=== PATIENT | female | born 1960 | race Caucasian/White ===

== ENCOUNTER 2017-02-24 18:51 | Emergency (ER) | payer OTHER ==
[2017-02-24 18:56] VITALS: BP 165/108; PULSE 84; TEMP 98.3; BMI 28.7
[2017-02-24] MEDS ORDERED: OXYCODONE/APAP 5/325MG COMBO TABLET PO ONE (19:30)
[2017-02-24] MEDS ORDERED: OXYCODONE/APAP 5/325MG COMBO TABLET ONE (19:33)
--- NOTE | 2017-02-24 19:35 | PDOC ---
"History of Present Illness - General Chief Complaint: Pain Stated Complaint: LOWER BACK AND LEG PAIN Time Seen by Provider: 02/24/17 19:14 History Source: Patient Exam Limitations: No Limitations - History of Present Illness Initial Comments: 02/24/17 19:35 My Chief complaint: Left lower back pain with radiation down History of present illness: Patient is a 57-year-old female with a history of asthma, hypertension, and hypothyroidism and chronic lower back pain with radiculopathy. Patient reports that she was supposed to go for a right sided L3 L5 radio frequency ablation however her insurance company denied the procedure due to her having it on 2016. Pt. goes to Dr. Nishant Chan for pain management. She denies any weakness of her left leg or any saddle anesthesia or any incontinency. Patient reports that today pain increased from a 5 to an 8 and a sharp in nature. Occurred: reports: other (worsening today) Severity: reports: severe (left sided radiating down left leg worse today ) Pain Location: reports: back (left sided radiates down left posterior leg) Method of Injury: No: unknown Modifying Factors: worse with: None Loss of Consciousness: no loss of consciousness Associated Symptoms (Fall): denies symptoms Past History - Past Medical History Allergies/Adverse Reactions: Allergies Allergy/AdvReac Type Severity Reaction Status Date / Time No Known Allergies Allergy Verified 02/24/17 18:56 Home Medications: Ambulatory Orders Albuterol Sulfate Inhaler - [Ventolin HFA Inhaler -] 1 - 2 inh PO Q4H 02/24/17 Metoprolol Succinate [Toprol XL -] 25 mg PO DAILY 02/24/17 Oxycodone HCl/Acetaminophen [Percocet 5-325 mg Tablet] 1 - 2 tab PO Q6H Oxycodone HCl/Acetaminophen [Percocet 5-325 mg Tablet] 1 - 2 tab PO Q6H PRN #20 tab MDD 6 02/24/17 Asthma: Yes Diabetes: No (BORDERLINE) HTN: Yes Thyroid Disease: Yes - Surgical History Cholecystectomy: Yes - Psycho/Social/Smoking Cessation Hx Suicidal Ideation: No Smoking History: Never smoked Hx Alcohol Use: No Drug/Substance Use Hx: No Substance Use Type: None Review of Systems - Review of Systems Able to Perform ROS?: Yes Constitutional: No: Symptoms Reported HEENTM: No: Symptoms Reported Respiratory: No: Symptoms reported Cardiac (ROS): No: Symptoms Reported ABD/GI: No: Symptoms Reported : No: Symptoms Reported Musculoskeletal: Yes: Back Pain (left lower back radiates down left leg posteriorly ). No: Joint Pain, Joint Swelling Integumentary: No: Symptoms Reported Neurological: No: Symptoms reported *Physical Exam - Vital Signs Last Vital Signs Temp Pulse Resp BP Pulse Ox 98.3 F 84 20 165/108 97 02/24/17 18:53 02/24/17 18:53 02/24/17 18:53 02/24/17 18:53 02/24/17 18:53 - Physical Exam General Appearance: Yes: Appropriately Dressed Respiratory/Chest: positive: Lungs Clear, Normal Breath Sounds. negative: Chest Tender, Respiratory Distress Cardiovascular: positive: Regular Rhythm, Regular Rate, S1, S2 Musculoskeletal: positive: Normal Inspection, Decreased Range of Motion (at waist with flexion ), Other (left paraspinal muscle tenderness). negative: CVA Tenderness, CVA Tenderness (R), CVA Tenderness (L), Muscle Spasm, Vertebral Tenderness Extremity: positive: Normal Capillary Refill, Normal Inspection, Normal Range of Motion Integumentary: positive: Normal Color Neurologic: positive: Alert, Normal Response, Motor Strength 5/5 (b/l legs), Respond to painful stimul (b/l legs). negative: Responsive, Numbness, Sensory Deficit Deep Tendon Reflexes: Knee (L): 4+, Knee (R): 4+ Medical Decision Making - Medical Decision Making 02/24/17 19:40 Patient is a 57-year-old female with a history of asthma, hypertension, and hypothyroidism and chronic lower back pain with radiculopathy. Patient reports that she was supposed to go for a right sided L3 L5 radio frequency ablation however her insurance company denied the procedure due to her having it on 2016. Pt. goes to Dr. Nishant Chan for pain management. She denies any weakness of her left leg or any saddle anesthesia or any incontinency. Patient reports that today pain increased from a 5 to an 8 and a sharp in nature. Pt. has taken percocet in the past for that has helped but has not had in a long time. Pt. just took her BP medication. Left Lumbar radiculopathy PLAN: percocet 5mg/325 mg than every 6 hrs prn severe pain # 12 02/24/17 19:42 Patient Search Multi-Patient Search Reports Drug Listing Designation My LEXY Numbers Data Detail Level: Printer-Friendly View Extended View Confidential Drug Utilization Report Search Terms: Mars Laurent, 1960 Search Date: 02/24/2017 07:29:15 PM The Drug Utilization Report below displays all of the controlled substance prescriptions, if any, that your patient has filled in the last twelve months. The information displayed on this report is compiled from pharmacy submissions to the Department, and accurately reflects the information as submitted by the pharmacies. This report was requested by: Lalita Messer | Reference #: [id number] *DC/Admit/Observation/Transfer Diagnosis at time of Disposition: Lumbar pain with radiation down left leg - Discharge Dispostion Disposition: HOME Condition at time of disposition: Stable - Prescriptions Prescriptions: Oxycodone HCl/Acetaminophen [Percocet 5-325 mg Tablet] 1 - 2 tab PO Q6H PRN #20 tab MDD 6 PRN Reason: Severe Pain - Referrals Referrals: Hi Everett MD [Primary Care Provider] - - Patient Instructions Additional Instructions: FOLLOW UP WITH YOUR PAIN MANAGEMENT DOCTOR RETURN TO EMERGENCY ROOM IF ANY NUMBNESS OF LEGS OR PRIVATE AREA PATIENT VOICED UNDERSTANDING AND ALL QUESTIONS WERE ANSWERED - Post Discharge Activity"
== END 2017-02-24 20:05 | disposition home or self-care (01) ==
LOC: JERFT 18:51
DX: M54.16 Radiculopathy, lumbar region (principal); I10 Essential (primary) hypertension; J45.909 Unspecified asthma, uncomplicated; E03.9 Hypothyroidism, unspecified
CPT/HCPCS: 99281-25

== ENCOUNTER 2017-04-06 15:35 | Emergency (ER) | payer OTHER ==
[2017-04-06 15:39] VITALS: BP 155/90; PULSE 92; TEMP 99.1; BMI 29.2
[2017-04-06] MEDS ORDERED: KETOROLAC TROMETHAMINE 60 MG/2 ML VIAL ONE (16:44)
--- NOTE | 2017-04-06 16:51 | PDOC ---
History of Present Illness - General Chief Complaint: Pain, Acute Stated Complaint: LT ARM/SHOULDER PAIN Time Seen by Provider: 04/06/17 16:22 History Source: Patient Exam Limitations: No Limitations - History of Present Illness Initial Comments: 04/06/17 16:46 Patient came to the emergency department for evaluation of chronic left shoulder pain. suffers from multiple chronic issues including low back pain, upper back pain, fibromyalgia, and psychiatric diagnoses. feelyani may have strained her left arm and was concerned about her shoulder bones. Patient denies numbness or tingling to hand, had no specific injury although feels may have been lifting some heavy bags earlier last week. suffers from multiple inflammatory problems and is requesting Percocet for pain relief 04/06/17 16:52 Occurred: reports: last week Severity: reports: mild, moderate Pain Location: reports: upper extremity Past History - Travel Traveled outside of the country in the last 30 days: No Close contact w/someone who was outside of country & ill: No - Past Medical History Allergies/Adverse Reactions: Allergies Allergy/AdvReac Type Severity Reaction Status Date / Time No Known Allergies Allergy Verified 04/06/17 15:39 Home Medications: Ambulatory Orders Albuterol Sulfate Inhaler - [Ventolin HFA Inhaler -] 1 - 2 inh PO Q4H 02/24/17 Metoprolol Succinate [Toprol XL -] 25 mg PO DAILY 02/24/17 Oxycodone HCl/Acetaminophen [Percocet 5-325 mg Tablet] 1 - 2 tab PO Q6H Oxycodone HCl/Acetaminophen [Percocet 5-325 mg Tablet] 1 - 2 tab PO Q6H PRN #20 tab MDD 6 02/24/17 Asthma: Yes Diabetes: No (BORDERLINE) HTN: Yes Thyroid Disease: Yes - Surgical History Cholecystectomy: Yes - Psycho/Social/Smoking Cessation Hx Suicidal Ideation: No Smoking History: Never smoked Information on smoking cessation initiated: No Hx Alcohol Use: No Drug/Substance Use Hx: No Substance Use Type: None Review of Systems - Review of Systems Able to Perform ROS?: Yes Is the patient limited Slovenian proficient: Yes Constitutional: Yes: Symptoms Reported, See HPI HEENTM: Yes: See HPI. No: Symptoms Reported Respiratory: No: Symptoms reported Musculoskeletal: Yes: Symptoms Reported, See HPI, Joint Pain, Muscle Pain Integumentary: No: Symptoms Reported Psychiatric: Yes: Anxiety All Other Systems: Reviewed and Negative *Physical Exam - Vital Signs Last Vital Signs Temp Pulse Resp BP Pulse Ox 99.1 F 92 H 19 155/90 98 04/06/17 15:37 04/06/17 15:37 04/06/17 15:37 04/06/17 15:37 04/06/17 15:37 - Physical Exam General Appearance: Yes: Nourished, Appropriately Dressed HEENT: positive: SOPHIE, Normal ENT Inspection Gastrointestinal/Abdominal: positive: Soft. negative: Tender Musculoskeletal: positive: Normal Inspection, Decreased Range of Motion (with pain on elevation against resistance ) Extremity: positive: Normal Capillary Refill, Swelling (mild tenderness and feet swelling noted at the capsule of left shoulder, but reproduce tenderness with abduction and forward flexion at tricep ligament) Integumentary: positive: Normal Color, Dry. negative: Rash, Swelling Neurologic: positive: press and blow machine tender II-XII NML intact, Fully Oriented, Alert, Normal Mood/ Affect, Normal Response, Motor Strength 5/5 Progress Note - Progress Note Progress Note: Left deltoid ligamentous strain, given 2 Percocet tablets for today pain relief , but encouraged to continue NSAIDs as narcotic pain indication probably not appropriate or indicated for this type of issue. Encouraged to follow-up with her PMD for further evaluation and treatment, and including reestablishment in pain management program. *DC/Admit/Observation/Transfer Diagnosis at time of Disposition: Left shoulder strain Qualifiers: Encounter type: initial encounter Qualified Code(s): S46.912A - Strain of unspecified muscle, fascia and tendon at shoulder and upper arm level, left arm , initial encounter - Discharge Dispostion Disposition: HOME Condition at time of disposition: Stable Admit: No - Patient Instructions Printed Discharge Instructions: How to Use a Sling, DI for Muscle Strain Additional Instructions: Rest, ice to area on and off for 15 minutes 4-6 times a day Avoid heavy lifting or exercise until pain and swelling is resolved or until further directed Keep area highly elevated to reduce swelling Use splints/Hood wrap as directed Followup with orthopedist in one to 2 days if not improving, if significantly improved may wait one week for followup with orthopedist May use ibuprofen 2-200 mg tablets every 6 hours as needed for pain Discussed with PMD about reinstating pain management and further prescriptions as needed
[2017-04-06] MEDS ORDERED: KETOROLAC TROMETHAMINE 60 MG/2 ML VIAL IM ONE (17:00)
== END 2017-04-06 17:04 | disposition home or self-care (01) ==
LOC: JERFT 15:35
PROC: 3E0233Z Introduction of Anti-inflammatory into Muscle, Percutaneous Approach (ICD-10-PCS; principal; 2017-04-06)
DX: S46.812A Strain of other muscles, fascia and tendons at shoulder and upper arm level, left arm, initial encounter (principal); G89.29 Other chronic pain; I10 Essential (primary) hypertension; E11.9 Type 2 diabetes mellitus without complications; E07.9 Disorder of thyroid, unspecified; J45.909 Unspecified asthma, uncomplicated; X50.0XXA Overexertion from strenuous movement or load, initial encounter; Y93.89 Activity, other specified; Y92.89 Other specified places as the place of occurrence of the external cause; Y99.8 Other external cause status
CPT/HCPCS: 99281-25

== ENCOUNTER 2018-06-14 17:33 | Emergency (ER) | payer OTHER ==
--- NOTE | 2018-06-14 17:52 | PDOC ---
Rapid Medical Evaluation Time Seen by Provider: 06/14/18 17:50 Medical Evaluation: Allergies Allergy/AdvReac Type Severity Reaction Status Date / Time No Known Allergies Allergy Verified 04/06/17 15:39 I have performed a brief in-person evaluation of this patient. The patient presents with a chief complaint of: dysuria and urgency x 2 days Pertinent physical exam findings: no CVA TTP b/l. no abd pain I have ordered the following: UA/culture The patient will proceed to the ED for further evaluation. Discharge Disposition - Diagnosis Dysuria - Referrals - Patient Instructions - Post Discharge Activity
[2018-06-14 17:53] VITALS: BP 130/77; PULSE 84; TEMP 98.5; BMI 28.0
[2018-06-14 19:00] LABS: URINE APPEARANCE CLOUDY; URINE BILIRUBIN NEGATIVE (<2.0 mg/dL); URINE COLOR DKYELLOW; URINE GLUCOSE (UA) NEGATIVE (NEGATIVE); URINE KETONE NEGATIVE (NEGATIVE); URINE LEUK ESTERASE 2+ (NEGATIVE); URINE NITRITE NEGATIVE (NEGATIVE); URINE PROTEIN NEGATIVE (NEGATIVE)
[2018-06-14 19:10] LABS: EPI CELLS RARE /HPF (FEW); URINE BACTERIA RARE /hpf (NONE SEEN); URINE MUCUS MANY
[2018-06-14] MEDS ORDERED: CEPHALEXIN MONOHYDRATE 500 MG CAPSULE (UD) PO ONE (19:19)
[2018-06-14] MEDS ORDERED: PHENAZOPYRIDINE HCL 100 MG TABLET (FP) PO ONE (19:19)
--- NOTE | 2018-06-14 19:21 | PDOC ---
History of Present Illness - General Chief Complaint: Urinary Problem Stated Complaint: UTI Time Seen by Provider: 06/14/18 17:50 History Source: Patient Exam Limitations: No Limitations - History of Present Illness Initial Comments: 06/14/18 19:22 Patient is a 58-year-old female who presents to the emergency department today for 3 days of dysuria, frequency and hesitancy. Patient states that she has lower abdominal pressure and discomfort. She states that her urine also has a foul smell to it. Denies fevers, chills, nausea, vomiting, diarrhea, back pain and weakness. Past History - Travel Traveled outside of the country in the last 30 days: No Close contact w/someone who was outside of country & ill: No - Past Medical History Allergies/Adverse Reactions: Allergies Allergy/AdvReac Type Severity Reaction Status Date / Time No Known Allergies Allergy Verified 06/14/18 17:50 Home Medications: Ambulatory Orders Albuterol Sulfate Inhaler - [Ventolin HFA Inhaler -] 1 - 2 inh PO Q4H 02/24/17 Metoprolol Succinate [Toprol XL -] 25 mg PO DAILY 02/24/17 Oxycodone HCl/Acetaminophen [Percocet 5-325 mg Tablet] 1 - 2 tab PO Q6H Oxycodone HCl/Acetaminophen [Percocet 5-325 mg Tablet] 1 - 2 tab PO Q6H PRN #20 tab MDD 6 02/24/17 Cephalexin Monohydrate [Keflex -] 500 mg PO BID #14 capsule 06/14/18 Phenazopyridine HCl [Pyridium -] 100 mg PO TID #9 tablet 06/14/18 Asthma: Yes COPD: No Diabetes: No (BORDERLINE) HTN: Yes Thyroid Disease: Yes - Surgical History Cholecystectomy: Yes - Immunization History Immunization Up to Date: Yes - Suicide/Smoking/Psychosocial Hx Smoking History: Never smoked Information on smoking cessation initiated: No Hx Alcohol Use: No Drug/Substance Use Hx: No Substance Use Type: None Review of Systems - Review of Systems Able to Perform ROS?: Yes Comments:: 06/14/18 19:18 CONSTITUTIONAL: Absent: fever, chills, diaphoresis, generalized weakness, malaise, loss of appetite HEENT: Absent: rhinorrhea, nasal congestion, throat pain, throat swelling, difficulty swallowing, mouth swelling, ear pain, eye pain, visual Changes CARDIOVASCULAR: Absent: chest pain, loss of consciousness, palpitations, irregular heart rate, peripheral edema RESPIRATORY: Absent: cough, shortness of breath, dyspnea with exertion, orthopnea, wheezing, stridor, hemoptysis GASTROINTESTINAL: Absent: abdominal pain, abdominal distension, nausea, vomiting, diarrhea, constipation, melena, hematochezia GENITOURINARY: Present: dysuria, frequency, urgency, hesitancy Absent: hematuria, flank pain, genital pain MUSCULOSKELETAL: Absent: myalgia, arthralgia, joint swelling SKIN: Absent: rash, itching, pallor HEMATOLOGIC/IMMUNOLOGIC: Absent: easy bleeding, easy bruising, lymphadenopathy, frequent infections ENDOCRINE: Absent: unexplained weight gain, unexplained weight loss, heat intolerance, cold intolerance NEUROLOGIC: Absent: headache, focal weakness or paresthesias, dizziness, unsteady gait, seizure, mental status changes, bladder or bowel incontinence PSYCHIATRIC: Absent: anxiety, depression, suicidal or homicidal ideation, hallucinations. Is the patient limited Cameroonian proficient: No *Physical Exam - Vital Signs Last Vital Signs Temp Pulse Resp BP Pulse Ox 98.5 F 84 16 130/77 97 06/14/18 17:51 06/14/18 17:51 06/14/18 17:51 06/14/18 17:51 06/14/18 17:51 - Physical Exam Comments: 06/14/18 19:19 GENERAL: Well developed, well nourished. Awake and alert. No acute distress. NECK: Supple. Full ROM. No JVD. Carotid pulses 2+ and symmetric, without bruits. No thyromegaly. No lymphadenopathy. ABDOMINAL: Soft. Non-tender. Non-distended. No rebound or guarding. No organomegaly. Normoactive bowel sounds. SKIN: Warm and dry. Normal capillary refill. No rashes. No jaundice. NEUROLOGICAL: Alert, awake, appropriate. Cranial nerves 2-12 intact. No deficits to light touch and temperature in face, upper extremities and lower extremities. No motor deficits in the in face, upper extremities and lower extremities. Normoreflexic in the upper and lower extremities. Normal speech. Toes are down- going bilaterally. Gait is normal without ataxia. PSYCHIATRIC: Cooperative. Good eye contact. Appropriate mood and affect. ED Treatment Course - ADDITIONAL ORDERS Additional order review: Laboratory Results 06/14/18 17:52 Urine Color Dkyellow Urine Appearance Cloudy Urine pH 5.0 Ur Specific Soso 1.026 Urine Protein Negative Urine Glucose (UA) Negative Urine Ketones Negative Urine Blood Negative Urine Nitrite Negative Urine Bilirubin Negative Urine Urobilinogen 2.0 H Ur Leukocyte Esterase 2+ H Urine WBC (Auto) 41 Urine RBC (Auto) 2 Ur Epithelial Cells Rare Urine Bacteria Rare Urine Mucus Many Medical Decision Making - Medical Decision Making 06/14/18 19:23 Patient is a 58-year-old female who presents to the emergency department today for dysuria, frequency, hesitancy. On exam patient with no abdominal pain or CVA tenderness. Urine ordered from [facility] shows 2+ leukocytes with 40+ white blood cells. We'll treat as a urinary tract infection at this time. Keflex and Pyridium ordered. Discharge home I discussed the physical exam findings, ancillary test results and final diagnoses with the patient. I answered all of the patient's questions. The patient was satisfied with the care received and felt comfortable with the discharge plan and treatment plan. The Patient agrees to follow up with the primary care physician/specialist within 24-72 hours. Return precautions were given. *DC/Admit/Observation/Transfer Diagnosis at time of Disposition: UTI (urinary tract infection) Qualifiers: Urinary tract infection type: acute cystitis Hematuria presence: without hematuria Qualified Code(s): N30.00 - Acute cystitis without hematuria - Discharge Dispostion Disposition: HOME Condition at time of disposition: Stable Decision to Admit order: No - Prescriptions Prescriptions: Cephalexin Monohydrate [Keflex -] 500 mg PO BID #14 capsule Phenazopyridine HCl [Pyridium -] 100 mg PO TID #9 tablet - Referrals Referrals: Sabrina Guerrero MD [Staff Physician] - - Patient Instructions Printed Discharge Instructions: DI for Urinary Tract Infection (UTI) Additional Instructions: You have a urinary tract infection. This caused by bacteria. Please drink plenty of fluids. Take your antibiotics as prescribed. Finish the entire dose even if you feel better. You may take Tylenol or Motrin as needed for pain. Follow the dosing instruction on the bottle You may take the pyridium 100mg TID with food to help with the pain when you pee. Please follow up with your primary care doctor this week. Return to the emergency department if you have fevers, chills, nausea, vomiting , back pain, or have any changes in your symptoms. - Post Discharge Activity Forms/Work/School Notes: Back to Work
[2018-06-14] MEDS ORDERED: PHENAZOPYRIDINE HCL 100 MG TABLET (FP) ONE (19:25)
[2018-06-14] MEDS ORDERED: CEPHALEXIN MONOHYDRATE 500 MG CAPSULE (UD) ONE (19:25)
== END 2018-06-14 19:30 | disposition home or self-care (01) ==
LOC: JERFT 17:33
DX: N30.00 Acute cystitis without hematuria (principal); I10 Essential (primary) hypertension; J45.909 Unspecified asthma, uncomplicated; E07.89 Other specified disorders of thyroid
CPT/HCPCS: 81003; 81015; 87086; 87186; 99281-25

== ENCOUNTER 2019-04-05 22:29 | Emergency (ER) | payer OTHER ==
[2019-04-05 22:44] VITALS: TEMP 98.5; BMI 69.8
--- NOTE | 2019-04-05 23:31 | PDOC ---
*Physical Exam - Vital Signs Last Vital Signs Temp Pulse Resp BP Pulse Ox 98.5 F 91 H 19 113/68 98 04/05/19 22:40 04/05/19 22:40 04/05/19 22:40 04/05/19 22:40 04/05/19 22:40 Medical Decision Making - Medical Decision Making 04/05/19 23:30 Patient seen by the advanced practice provider under my direct supervision. Ancillary testing reviewed as necessary. I agree with plan as outlined by the advanced practice provider. *DC/Admit/Observation/Transfer Diagnosis at time of Disposition: UTI (urinary tract infection) Qualifiers: Urinary tract infection type: acute cystitis Hematuria presence: without hematuria Qualified Code(s): N30.00 - Acute cystitis without hematuria - Discharge Dispostion Disposition: HOME Condition at time of disposition: Stable - Prescriptions Prescriptions: Cefdinir [Omnicef -] 300 mg PO BID #14 capsule - Referrals Referrals: Charles Valencia MD [Staff Physician] - - Patient Instructions Printed Discharge Instructions: DI for Urinary Tract Infection (UTI) Additional Instructions: You have a urinary tract infection. This caused by bacteria. Please drink plenty of fluids. Take your antibiotics as prescribed. Finish the entire dose even if you feel better. You may take Tylenol or Motrin as needed for pain Please follow up with your primary care doctor this week. Return to the emergency department if you have fevers, chills, nausea, vomiting , back pain, or have any changes in your symptoms. - Post Discharge Activity Forms/Work/School Notes: Back to Work
[2019-04-05 23:44] LABS: EPI CELLS 0.9 /HPF (0-5/HPF); HYALINE CASTS 23 /lpf (0-8); URINE APPEARANCE CLEAR; URINE BACTERIA 193.7 /hpf (NEGATIVE); URINE BILIRUBIN NEGATIVE (NEGATIVE); URINE COLOR YELLOW; URINE GLUCOSE (UA) NEGATIVE (NEGATIVE); URINE KETONE NEGATIVE (NEGATIVE); URINE LEUK ESTERASE 1+ (NEGATIVE); URINE NITRITE POSITIVE (NEGATIVE); URINE PROTEIN NEGATIVE (NEGATIVE); URINE RBC 2 /hpf (0-4); URINE WBC 60 /hpf (0-5)
[2019-04-06] MEDS ORDERED: CEPHALEXIN MONOHYDRATE 500 MG CAPSULE (UD) PO ONE ×2 (00:43→00:48)
--- NOTE | 2019-04-06 00:47 | PDOC ---
History of Present Illness - General Chief Complaint: Urinary Problem Stated Complaint: URINARY PROBLEM Time Seen by Provider: 04/05/19 23:28 History Source: Patient Exam Limitations: No Limitations Past History - Travel Traveled outside of the country in the last 30 days: No Close contact w/someone who was outside of country & ill: No - Past Medical History Allergies/Adverse Reactions: Allergies Allergy/AdvReac Type Severity Reaction Status Date / Time No Known Allergies Allergy Verified 06/14/18 17:50 Home Medications: Ambulatory Orders Cephalexin Monohydrate [Keflex -] 500 mg PO BID #14 capsule 06/14/18 Phenazopyridine HCl [Pyridium -] 100 mg PO TID #9 tablet 06/14/18 Cefdinir [Omnicef -] 300 mg PO BID #10 capsule 06/18/18 Cefixime [Suprax -] 400 mg PO DAILY #7 capsule 06/18/18 Cefixime [Suprax -] 400 mg PO DAILY #7 capsule 06/18/18 Cefdinir [Omnicef -] 300 mg PO BID #14 capsule 04/06/19 Asthma: Yes COPD: No Diabetes: No (BORDERLINE) HTN: Yes Thyroid Disease: Yes - Surgical History Cholecystectomy: Yes - Immunization History Immunization Up to Date: Yes - Suicide/Smoking/Psychosocial Hx Smoking History: Never smoked Hx Alcohol Use: No Drug/Substance Use Hx: No Substance Use Type: None Review of Systems - Review of Systems Able to Perform ROS?: Yes Comments:: 04/06/19 00:42 CONSTITUTIONAL: Absent: fever, chills, diaphoresis, generalized weakness, malaise, loss of appetite HEENT: Absent: rhinorrhea, nasal congestion, throat pain, throat swelling, difficulty swallowing, mouth swelling, ear pain, eye pain, visual Changes CARDIOVASCULAR: Absent: chest pain, loss of consciousness, palpitations, irregular heart rate, peripheral edema RESPIRATORY: Absent: cough, shortness of breath, dyspnea with exertion, orthopnea, wheezing, stridor, hemoptysis GASTROINTESTINAL: Absent: abdominal pain, abdominal distension, nausea, vomiting, diarrhea, constipation, melena, hematochezia GENITOURINARY: Present: dysuria, frequency Absent: urgency, hesitancy, hematuria, flank pain, genital pain MUSCULOSKELETAL: Absent: myalgia, arthralgia, joint swelling SKIN: Absent: rash, itching, pallor HEMATOLOGIC/IMMUNOLOGIC: Absent: easy bleeding, easy bruising, lymphadenopathy, frequent infections ENDOCRINE: Absent: unexplained weight gain, unexplained weight loss, heat intolerance, cold intolerance NEUROLOGIC: Absent: headache, focal weakness or paresthesias, dizziness, unsteady gait, seizure, mental status changes, bladder or bowel incontinence PSYCHIATRIC: Absent: anxiety, depression, suicidal or homicidal ideation, hallucinations. Is the patient limited Slovak proficient: No *Physical Exam - Vital Signs Last Vital Signs Temp Pulse Resp BP Pulse Ox 98.5 F 91 H 19 113/68 98 04/05/19 22:40 04/05/19 22:40 04/05/19 22:40 04/05/19 22:40 04/05/19 22:40 - Physical Exam Comments: 04/06/19 00:43 GENERAL: Well developed, well nourished. Awake and alert. No acute distress. HEENT: Normocephalic, atraumatic. PERRLA, EOMI. No conjunctival pallor. Sclera are non- icteric. Moist mucous membranes. Oropharynx is clear. ABDOMINAL: suprapubic discomfort Soft. Non-tender. Non-distended. No rebound or guarding. No organomegaly. Normoactive bowel sounds. MUSCULOSKELETAL Normal range of motion at all joints. No bony deformities or tenderness. No CVA tenderness. EXTREMITIES: No cyanosis. No clubbing. No edema. No calf tenderness. SKIN: Warm and dry. Normal capillary refill. No rashes. No jaundice. NEUROLOGICAL: Alert, awake, appropriate. Cranial nerves 2-12 intact. No deficits to light touch and temperature in face, upper extremities and lower extremities. No motor deficits in the in face, upper extremities and lower extremities. Normoreflexic in the upper and lower extremities. Normal speech. Toes are down- going bilaterally. Gait is normal without ataxia. PSYCHIATRIC: Cooperative. Good eye contact. Appropriate mood and affect. ED Treatment Course - ADDITIONAL ORDERS Additional order review: Laboratory Results 04/05/19 23:35 Urine Color Yellow Urine Appearance Clear Urine pH 5.0 Ur Specific [place] 1.021 Urine Protein Negative Urine Glucose (UA) Negative Urine Ketones Negative Urine Blood Negative Urine Nitrite Positive H Urine Bilirubin Negative Urine Urobilinogen 1.0 Ur Leukocyte Esterase 1+ H Urine WBC (Auto) 60 Urine RBC (Auto) 2 Urine Casts (Auto) 23 U Epithel Cells (Auto) 0.9 Urine Bacteria (Auto) 193.7 Medical Decision Making - Medical Decision Making 04/06/19 00:46 cefdnir prescribed based on old sensitivity *DC/Admit/Observation/Transfer Diagnosis at time of Disposition: UTI (urinary tract infection) Qualifiers: Urinary tract infection type: acute cystitis Hematuria presence: without hematuria Qualified Code(s): N30.00 - Acute cystitis without hematuria - Discharge Dispostion Disposition: HOME Condition at time of disposition: Stable Decision to Admit order: No - Referrals Referrals: Charles Valencia MD [Staff Physician] - - Patient Instructions Printed Discharge Instructions: DI for Urinary Tract Infection (UTI) Additional Instructions: You have a urinary tract infection. This caused by bacteria. Please drink plenty of fluids. Take your antibiotics as prescribed. Finish the entire dose even if you feel better. You may take Tylenol or Motrin as needed for pain Please follow up with your primary care doctor this week. Return to the emergency department if you have fevers, chills, nausea, vomiting , back pain, or have any changes in your symptoms. - Post Discharge Activity Forms/Work/School Notes: Back to Work
[2019-04-06] MEDS ORDERED: CEPHALEXIN MONOHYDRATE 500 MG CAPSULE (UD) ONE (00:52)
[2019-04-06 00:58] VITALS: BP 109/70; PULSE 72
== END 2019-04-06 01:02 | disposition home or self-care (01) ==
LOC: JER 22:29
DX: N30.00 Acute cystitis without hematuria (principal); I10 Essential (primary) hypertension; Z87.09 Personal history of other diseases of the respiratory system
CPT/HCPCS: 81003; 87086; 87186; 99282-25

== ENCOUNTER 2019-07-10 16:53 | Emergency (ER) | payer OTHER ==
[2019-07-10 17:04] VITALS: BP 136/79; PULSE 78; BMI 30.3
[2019-07-10] MEDS ORDERED: ALBUTEROL SO4 2.5/IPRATROPIUM 0.5 INH SOL 3 ML VIAL.NEB. NEB ONE (17:07)
[2019-07-10 17:08] VITALS: TEMP 97.8
--- NOTE | 2019-07-10 17:08 | PDOC ---
Rapid Medical Evaluation Chief Complaint: Shortness of Breath Time Seen by Provider: 07/10/19 17:04 Medical Evaluation: Allergies Allergy/AdvReac Type Severity Reaction Status Date / Time No Known Allergies Allergy Verified 07/10/19 17:04 Vital Signs Temp Pulse Resp BP Pulse Ox 36.8 F L 78 20 136/79 97 07/10/19 17:01 07/10/19 17:01 07/10/19 17:01 07/10/19 17:01 07/10/19 17:01 07/10/19 17:07 Pt presents for 4 days of cough, congestion and difficulty breathing Exam: lungs CTAB, wet cough. Orders: duoneb, cxr Pt to proceed to the ER for further evaluation Discharge Disposition - Diagnosis Cough - Referrals - Patient Instructions - Post Discharge Activity
--- NOTE | 2019-07-10 20:10 | PDOC ---
History of Present Illness - General Chief Complaint: Shortness of Breath Stated Complaint: S.O.B Time Seen by Provider: 07/10/19 17:04 - History of Present Illness Initial Comments: 07/10/19 20:07 59-year-old female with a past medical history of asthma presents for evaluation of cough x4 days no systemic symptoms Past History - Past Medical History Allergies/Adverse Reactions: Allergies Allergy/AdvReac Type Severity Reaction Status Date / Time No Known Allergies Allergy Verified 07/10/19 17:04 Home Medications: Ambulatory Orders Albuterol Sulfate Inhaler - [Ventolin Hfa Inhaler -] 1 - 2 inh PO Q4H 07/10/19 Guaifenesin Dm [Mucinex Dm -] 1 tab PO BID #60 tab.er.12h 07/10/19 Asthma: Yes COPD: No Diabetes: No (BORDERLINE) HTN: Yes Thyroid Disease: Yes - Surgical History Cholecystectomy: Yes - Immunization History Immunization Up to Date: Yes - Psycho Social/Smoking Cessation Hx Smoking History: Never smoked Have you smoked in the past 12 months: No Information on smoking cessation initiated: No Hx Alcohol Use: No Drug/Substance Use Hx: No Substance Use Type: None Review of Systems - Review of Systems Constitutional: No: Fever Respiratory: Yes: Cough *Physical Exam - Vital Signs Last Vital Signs Temp Pulse Resp BP Pulse Ox 97.8 F 78 20 136/79 97 07/10/19 17:01 07/10/19 17:01 07/10/19 17:01 07/10/19 17:01 07/10/19 17:01 - Physical Exam 07/10/19 20:08 GENERAL: The patient is awake, alert, and fully oriented, in no acute distress. HEAD: Normal with no signs of trauma. EYES: sclera anicteric, conjunctiva clear. ENT: Ears normal tympanic membranes normal oropharynx clear uvula midline NECK: Normal range of motion LUNGS: Breath sounds equal, clear to auscultation bilaterally. No wheezes, and no crackles. HEART: S1 and S2 without murmur, rub or gallop. ABDOMEN: Soft, nontender, normoactive bowel sounds. No guarding, no rebound. No masses. EXTREMITIES: Normal range of motion, no edema. No clubbing or cyanosis. No cords, erythema, or tenderness. NEUROLOGICAL: Cranial nerves II through XII grossly intact. Normal speech, normal gait. PSYCH: Normal mood, normal affect. SKIN: Warm, Dry, normal turgor, no rashes or lesions noted. ED Treatment Course - Medications Given in the ED: ED Medications Discontinued Medications Generic Name Dose Route Start Last Admin Trade Name Jameson PRN Reason Stop Dose Admin Albuterol/Ipratropium 1 amp 07/10/19 17:07 07/10/19 17:35 Duoneb - NEB 07/10/19 17:08 1 amp ONCE ONE Administration Medical Decision Making - Medical Decision Making 07/10/19 20:08 Benign examination no infiltrate on chest x-ray most likely a viral bronchitis or allergic cough patient does have a new cat follow-up with PCP we will treat cough with Mucinex Discharge - Discharge Information Problems reviewed: Yes Clinical Impression/Diagnosis: Cough, Viral URI with cough Condition: Stable Disposition: HOME - Admission No - Follow up/Referral Referrals: Maria A Guerin [Primary Care Provider] - - Patient Discharge Instructions Patient Printed Discharge Instructions: DI for Viral Upper Respiratory Infection -- Adult Additional Instructions: Return to the emergency room for worsening symptoms. Mucinex as directed for cough. Follow-up with your primary care physician in 2 to 3 days without fail for further evaluation and treatment options. - Post Discharge Activity
== END 2019-07-10 20:17 | disposition home or self-care (01) ==
LOC: JER 16:53 → JERFT 16:53
PROC: 3E0F7GC Introduction of Other Therapeutic Substance into Respiratory Tract, Via Natural or Artificial Opening (ICD-10-PCS; principal; 2019-07-10)
DX: J06.9 Acute upper respiratory infection, unspecified (principal); B97.89 Other viral agents as the cause of diseases classified elsewhere; I10 Essential (primary) hypertension; J45.909 Unspecified asthma, uncomplicated; E07.9 Disorder of thyroid, unspecified
CPT/HCPCS: 71046-TC-FY; 94640; 99281-25

== ENCOUNTER 2022-10-11 16:31 | Emergency (ER) | payer OTHER ==
[2022-10-11 16:50] VITALS: RESP 18; BMI 29.2
[2022-10-11] MEDS ORDERED: SODIUM CHLORIDE 0.9% 500 ML INFUS.BAG IV ONE (18:13)
[2022-10-11] MEDS ORDERED: MAG HYDROX/AL HYDROX/SIMETH -MYLANTA- ORAL SUSPENSION PO ONE (18:14)
[2022-10-11] MEDS ORDERED: ACETAMINOPHEN 1000 MG/100 ML BAG IVPB ONE (18:15)
[2022-10-11] MEDS ORDERED: ONDANSETRON 4 MG/2 ML VIAL IVPUSH ONE (18:15)
[2022-10-11] MEDS ORDERED: ACETAMINOPHEN INJECTION 100 ML IVPB ONE (18:16)
[2022-10-11] MEDS ORDERED: MAG HYDROX/AL HYDROX/SIMETH 30 ML UNIT-DOSE CUP ONE (18:17)
[2022-10-11] MEDS ORDERED: ONDANSETRON 4 MG/2 ML VIAL ONE (18:17)
[2022-10-11 18:44] LABS: BASO % 0.4 % (0-2.0); EOS % 0.1 % (0-4.5); HEMOGLOBIN 13.4 GM/dL (10.7-15.3); LYMPH % 17.1 % (8-40); MCH 25.6 pg (25.7-33.7); MCHC 33.7 g/dl (32.0-36.0); MEAN CELL VOLUME 76.2 fl (80-96); MEAN PLT VOLUME 7.4 fl (7.5-11.1); MONO % 13.5 % (3.8-10.2); NEUT % 68.9 % (42.8-82.8); PLATELET COUNT 462 10^3/uL (134-434); RBC 5.24 M/mm3 (3.60-5.2); RDW 15.4 % (11.6-15.6); WHITE BLOOD COUNT 8.1 K/mm3 (4.0-10.0)
[2022-10-11 18:47] LABS: EPI CELLS 7 /uL (0-25.1); HYALINE CASTS 0 /uL (0-3.1); URINE APPEARANCE CLOUDY; URINE BACTERIA 4682 /uL (0-1359); URINE BILIRUBIN NEGATIVE (NEGATIVE); URINE COLOR DK YELLOW; URINE GLUCOSE (UA) NEGATIVE (NEGATIVE); URINE KETONE TRACE (NEGATIVE); URINE LEUK ESTERASE 3+ (NEGATIVE); URINE NITRITE NEGATIVE (NEGATIVE); URINE PROTEIN 1+ (NEGATIVE); URINE RBC 94 /uL (0-23.9); URINE WBC 2358 /uL (0-25.8)
[2022-10-11 18:52] LABS: INR 1.16 (0.83-1.09); PROTHROMBIN TIME (PATIENT) 13.4 SEC (9.7-13.0)
[2022-10-11 18:55] LABS: ACTIVATED PTT 28.4 SECONDS (25.2-36.5)
[2022-10-11 19:01] LABS: CHLORIDE 84 mmol/L (98-107); SODIUM 132 mmol/L (136-145)
[2022-10-11 19:03] LABS: ALBUMIN 3.2 g/dl (3.4-5.0); CALCIUM 9.3 mg/dL (8.5-10.1); CO2 39 mmol/L (21-32); GLUCOSE,RANDOM 125 mg/dL (74-106)
[2022-10-11 19:04] LABS: BLOOD UREA NITROGEN 17.4 mg/dL (7-18); LIPASE 56 U/L (73-393)
[2022-10-11 19:06] LABS: CREATININE 0.9 mg/dL (0.55-1.3); SGOT/AST 16 U/L (15-37); SGPT/ALT 18 U/L (13-61)
[2022-10-11 19:08] LABS: BILIRUBIN,TOTAL 0.7 mg/dL (0.2-1)
[2022-10-11 19:09] LABS: ALK PHOS 86 U/L (45-117)
[2022-10-11 19:16] LABS: ANION GAP 9 MMOL/L (8-16)
[2022-10-11] MEDS ORDERED: CEFTRIAXONE 1,000 MG in DEXTROSE 5%-WATER - 50 ML IVPB ONE (19:21)
[2022-10-11] MEDS ORDERED: KCL 10 MEQ IVPB 10 MEQ/100 ML INFUS.BAG IVPB ONE (19:24)
[2022-10-11] MEDS ORDERED: CEFTRIAXONE 1 GM/50 ML BAG ONE (19:24)
[2022-10-11] MEDS: KCL 10 MEQ IVPB 10 MEQ/100 ML INFUS.BAG IVPB SCH ×2 (20:24→23:34)
[2022-10-11] MEDS ORDERED: POTASSIUM CHLORIDE ORAL LIQUID 20 MEQ/15 ML PO ONE (23:32)
[2022-10-11] MEDS ORDERED: POTASSIUM CHLORIDE ORAL LIQUID 20 MEQ/15 ML ONE (23:36)
[2022-10-12] MEDS: KCL 10 MEQ IVPB 10 MEQ/100 ML INFUS.BAG IVPB SCH (00:46)
[2022-10-12 02:42] VITALS: BP 116/75; PULSE 78; TEMP 99.2
== END 2022-10-12 02:47 | disposition left against medical advice (07) ==
LOC: JER 16:31
PROC: 3E03329 Introduction of Other Anti-infective into Peripheral Vein, Percutaneous Approach (ICD-10-PCS; principal; 2022-10-11)
PROC: 3E033GC Introduction of Other Therapeutic Substance into Peripheral Vein, Percutaneous Approach (ICD-10-PCS; 2022-10-11)
PROC: 3E033GC Introduction of Other Therapeutic Substance into Peripheral Vein, Percutaneous Approach (ICD-10-PCS; 2022-10-11)
DX: N12 Tubulo-interstitial nephritis, not specified as acute or chronic (principal); Z20.822 Contact with and (suspected) exposure to COVID-19
CPT/HCPCS: 0241U-QW; 36415; 71046-TC-FY; 71101-TC-LT-FY; 74177-TC; 80053; 81003; 83690; 85025; 85610; 85730; 86850; 86900; 86901; 87086; 87186; 93005; 93010; 99285-25; Q9967